=== PATIENT | female | born 1995 | race Caucasian/White ===

== ENCOUNTER 2023-11-23 13:26 | Emergency (ER) | payer OTHER, SELFPAY ==
[2023-11-23 13:32] VITALS: BP 115/76
[2023-11-23 14:01] LABS: % Basophils 0.5 % (0-2); % Eosinophils 2.3 % (0-6); % Immature Granulocytes 0.2 % (0-0.5); % Lymphocytes 39.8 % (20.5-51.1); % Neutrophils 45.2 % (42.2-75.2); Absolute Eosinophils 0.1 10^3/uL (0-0.7); Absolute Lymphocytes 1.8 10^3/uL (1.2-3.4); Absolute Monocytes 0.5 10^3/uL (0.1-0.6); Hematocrit 40.9 % (37.0-47.0); Mean Corp Hgb Conc. 34.2 g/dL (33.0-37.0); Mean Corpuscular Hgb 31.8 pg (27.0-31.0); Mean Platelet Volume 10.1 fL (7.4-10.4); Nucleated Red Blood Cells % 0 %; Platelet Count 223 10^3/uL (130-400); Red Cell Dist. Width 11.5 % (11.5-14.5); White Blood Cell Count 4.4 10^3/uL (4.8-10.8)
[2023-11-23 14:04] LABS: Urine Albumin Negative (Neg - Trace); Urine Bilirubin Negative (Negative); Urine Character Clear (Clear); Urine Color Yellow; Urine Glucose Negative (Negative); Urine Ketone Negative (Negative); Urine Leukocyte Negative (Negative); Urine Nitrite Negative (Negative); Urine Occult Blood Negative (Negative); Urine Urobilinogen Negative (Neg - 1+)
[2023-11-23 14:17] LABS: HCG, Serum Qualitative Screen Negative
[2023-11-23 14:21] LABS: ALT (SGPT) 15 U/L (0-35); AST (SGOT) 21 U/L (14-36); Albumin 4.5 g/dl (3.5-5.0); Alkaline Phosphatase 57 U/L (38-126); Blood Urea Nitrogen 13 mg/dl (7-17); Calcium 9.8 mg/dl (8.4-10.2); Carbon Dioxide 27 mmol/L (22-30); Chloride 105 mmol/L (98-107); Glucose 95 mg/dl (70-99); Potassium 4.3 mmol/L (3.5-5.1); Sodium 140 mmol/L (135-145); eGFR > 60.00
--- NOTE | 2023-11-23 15:55 | ED.GENMED ---
History of Present Illness
General
Chief Complaint: Abdominal Pain
Source: patient
Time Seen by Provider: 11/23/23 14:59
History of Present Illness
History of Present Illness:
28-year-old female presenting the emergency department for evaluation of right lower quadrant abdominal pain x 3 days, gradually worsening during this time and accompanied a migraine headache today and some loose stool during the 3 days. Patient
denies any fevers, chills, rigors, nausea or vomiting, urinary symptoms, back or flank pain or any other concerns. She did not take anything for symptoms prior to arrival. Last menstrual period finished 2 days ago. She does have a history of
ovarian cyst but states this feels very different. No other concerns at this time.
Past History
Past History
ED Past Medical History: Other (Migraine headache)
ED Past Surgical History: None
Social History
Tobacco: Non-smoker
Alcohol: None
Drug: None
Personal: Single
Living: with family
Review of Systems
Review of Systems
All Other Systems: ROS reviewed and negative except as documented in HPI and ROS
Phy Exam
Physical Exam
Physical Exam:
GENERAL: Alert , in no apparent distress
EYE: clear conjunctiva b/l
HEAD: NCAT
ENT: o/p clr, mmm.
CARDIAC: Regular rate and rhythm .
LUNGS: Clear breath sounds bilaterally, no acute respiratory distress, no wheezes/rales/rhonchi
ABDOMEN: Soft, mild right lower quadrant tenderness, no r/g, no cvat, negative Toure sign, mild tenderness at McBurney's point
NEUROLOGICAL: Alert and oriented
SKIN: Warm and dry, skin intact.
MUSCULOSKELETAL: well perfused.
PSYCH: Normal and appropriate interaction.
Scores
Heart Failure Risk
Heart Failure Risk Score: Not Applicable
Heart Score for Chest Pain Patients
STEMI patient?: Not applicable
Withdrawal Assessment of Alcohol
Withdrawal Assessment Completed?: Not applicable
Course
Orders/Labs/Results
Orders:
Orders
11/23/23 13:34
Test Result ONCE
11/23/23 13:42
Complete Blood Count/With Diff Urgent
Comprehensive Metabolic Panel Urgent
HCG, Serum Qualitative Screen Urgent
Lipase Urgent
Comment: ADD ON
Urinalysis Reflex To Culture Urgent
Date Specimen was Collected: 11/23/23
Time Specimen was Collected: 13:34
11/23/23 15:08
CT Abd/pel W Iv And Oral Contr Urgent
Comment:
Reason For Exam: RLQ pain
Iohexol [Omnipaque] See Protocol PO NOW STA
11/23/23 15:14
Ketorolac [Toradol] 30 mg IV NOW STA
11/23/23 15:57
Add On- LAB Urgent
Tests Added?: lipase
Abnormal Lab Results
11/23/23
13:42
WBC 4.4 L 10^3/uL
(4.8-10.8)
MCH 31.8 H pg
(27.0-31.0)
Monocytes % 12.0 H %
(1.7-9.3)
11/23/23 13:42
11/23/23 13:42
Vital Signs
Initial and Last Documented VS:
Initial Vital Signs
Temp Pulse Resp BP Pulse Ox
98.1 F 81 18 115/76 98
11/23/23 13:32 11/23/23 13:32 11/23/23 13:32 11/23/23 13:32 11/23/23 13:32
Last Documented Vital Signs
Temp Pulse Resp BP Pulse Ox
98.1 F 62 18 114/65 98
11/23/23 13:32 11/23/23 18:55 11/23/23 13:32 11/23/23 18:55 11/23/23 13:32
MDM/Problems Addressed
Differential Diagnosis Includes:
Appendicitis, ovarian cyst, colitis, pancreatitis
MDM/Problems Addressed:
28-year-old female presenting emergency department for evaluation of 3 days of right lower quadrant abdominal pain. Symptoms are not much different today however patient notes pain seems to be a little bit stronger. Did not take anything for the
pain or symptoms. Exam does reveal some right lower quadrant tenderness on palpation. Labs have been initiated in triage and shows a very slight leukopenia. Other labs and urine are unremarkable. Will obtain a CT of the abdomen and pelvis for
further evaluation. Toradol ordered for abdominal pain and patient's mild headache.
*Radiology
Radiology exam reviewed: radiology read reviewed
*Pulse Oximetry
Patient hypoxic: no
*Critical Care Note
Total Time (30-74mins, 75-104mins- exclusive of procedures): Not Applicable
Patient Management
Escalation/DeEscalation of care consider admission/obs:
Patient CT scan shows mild fecal material within the proximal colon as well as a 9.4 mm corpus luteal cyst in the left ovary. There is no evidence for appendicitis or other acute pathologies within the abdomen. Patient has no leukocytosis,
afebrile. She still does note some mild discomfort in the abdomen. Advised continued NSAIDs/Tylenol as needed for pain. Close follow-up with primary care provider. Aware of return cautions. Otherwise stable for discharge home.
ED Attending Note
-
Portions of this chart may have been created with voice recognition software.� Occasional wrong word or��sound alike� substitutions may have occurred due to the inherent limitations of voice recognition software.
Discharge Plan
Departure
Patient Disposition: Home (Routine Discharge)
Date of Disposition: 11/23/23
Time of Disposition: 19:07
Patient with high blood pressure during this ER visit?: No
Discharge Problem:
Abdominal pain
Instructions: Abdominal Pain
Referrals:
UNKNOWN - PT DOES,NOT KNOW [Family Provider] -
Interventions
Interventions:
*Risk Screen - Suicide Last Done: 11/23/23 13:32
*General Assessment Last Done: 11/23/23 13:32
*Neglect/Abuse Screening Last Done: 11/23/23 13:32
*Nursing Disposition Last Done: 11/23/23 19:27
RV-Gverwy-Lidpyhhpex Assessment Last Done: 11/23/23 16:10
Discharge Date and Time
Discharge Date/Time: 11/23/23 19:27
Print Language: TELUGU
[2023-11-23] MEDS: OMNIPAQUE 50 ML PO (15:56)
[2023-11-23] MEDS: TORADOL 30 MG IV (16:05)
[2023-11-23 16:28] LABS: Lipase 131 U/L (23-300)
[2023-11-23 18:55] VITALS: BP 114/65
== END 2023-11-23 19:27 | disposition home or self-care (01) ==
LOC: EMR 13:26
PROVIDERS: Emergency Medicine; EMERGENCY PHYSICIAN Emergency Medicine
DX: R10.31 Right lower quadrant pain (principal); R19.7 Diarrhea, unspecified; G43.909 Migraine, unspecified, not intractable, without status migrainosus; N83.12 Corpus luteum cyst of left ovary; Z91.018 Allergy to other foods; Z91.010 Allergy to peanuts
CPT/HCPCS: 99284; 96374; 74177; 80053; 81003; 83690; 84703; 85025; Q9967

== ENCOUNTER 2023-12-06 11:51 | Emergency (ER) | payer OTHER, SELFPAY ==
[2023-12-06 11:56] VITALS: BP 142/119; BMI 27.5
[2023-12-06 12:12] LABS: HCG, Urine Qualitative Screen Negative
[2023-12-06 13:05] LABS: Urine Albumin Negative (Neg - Trace); Urine Bilirubin Negative (Negative); Urine Character Clear (Clear); Urine Color Straw; Urine Glucose Negative (Negative); Urine Ketone Negative (Negative); Urine Leukocyte Negative (Negative); Urine Nitrite Negative (Negative); Urine Occult Blood Negative (Negative); Urine Specific Gravity 1.005 (<1.030); Urine Urobilinogen Negative (Neg - 1+)
[2023-12-06] MEDS: ZOFRAN 4 MG IV (13:27)
[2023-12-06] MEDS: DILAUDID 0.5 MG IV ×2 (13:27→15:06)
[2023-12-06 13:33] LABS: % Basophils 0.2 % (0-2); % Eosinophils 3.3 % (0-6); % Immature Granulocytes 0.2 % (0-0.5); % Lymphocytes 33.1 % (20.5-51.1); % Neutrophils 52.2 % (42.2-75.2); Absolute Eosinophils 0.1 10^3/uL (0-0.7); Absolute Lymphocytes 1.4 10^3/uL (1.2-3.4); Absolute Monocytes 0.5 10^3/uL (0.1-0.6); Absolute Neutrophils 2.2 10^3/uL (1.4-6.5); Hemoglobin 13.5 g/dL (12.0-16.0); Mean Corp Hgb Conc. 35.5 g/dL (33.0-37.0); Mean Corpuscular Hgb 31.8 pg (27.0-31.0); Mean Corpuscular Volume 89.4 fL (81.0-99.0); Mean Platelet Volume 9.9 fL (7.4-10.4); Nucleated Red Blood Cells % 0 %; Platelet Count 187 10^3/uL (130-400); Red Blood Cell Count 4.25 10^6/uL (4.20-5.40); Red Cell Dist. Width 11.4 % (11.5-14.5); White Blood Cell Count 4.3 10^3/uL (4.8-10.8)
[2023-12-06 13:54] LABS: Blood Urea Nitrogen 10 mg/dl (7-17); Calcium 9.9 mg/dl (8.4-10.2); Carbon Dioxide 26 mmol/L (22-30); Chloride 105 mmol/L (98-107); Estimated Creatinine Clearance > 125 ml/min; Glucose 90 mg/dl (70-99); Sodium 139 mmol/L (135-145); eGFR > 60.00
[2023-12-06 14:52] VITALS: BP 103/72
--- NOTE | 2023-12-06 17:49 | ED.GENMED ---
History of Present Illness
<Manny Shanks, DO - Last Filed: 12/06/23 18:17>
General
Chief Complaint: Abdominal Pain
Source: patient
Time Seen by Provider: 12/06/23 12:46
History of Present Illness
History of Present Illness:
Twice atrial female presents with right lower quadrant abdominal pain. The patient states that the symptoms have been ongoing for about 2 weeks but worse over the last 4 days. The pain intermittently now radiates toward the vagina. She states the
pain toward the vagina will be shooting in nature. She denies hematuria. No fevers. No vomiting. No motor weakness. No back pain. No flank pain. No rash. No injury. She has had no foreign bodies in the vagina but states she thought she felt
something abnormal when she was sitting on the toilet. She has been unable to follow-up with a splunk dashboard developer. The patient was seen recently in the emergency department had a negative CT.
Past History
<Manny Shanks, DO - Last Filed: 12/06/23 18:17>
Past History
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
<Abdulkadir Meza, DO - Last Filed: 12/06/23 19:56>
Past History
ED Past Medical History: Other (Migraine headache)
ED Past Surgical History: None
Social History
Tobacco: Non-smoker
Alcohol: None
Drug: None
Personal: Single
Living: with family
Phy Exam
<Manny Shanks, DO - Last Filed: 12/06/23 18:17>
Physical Exam
Physical Exam:
CONSTITUTIONAL Patient alert and oriented to person, place and time. Well-appearing. Vital signs reviewed.
HEAD atraumatic, normocephalic.
EYES eyelids normal to inspection, Pupils equally round and reactive to light, Extraocular muscles intact, Conjunctiva normal, Sclera normal.
NECK normal range of motion, Trachea midline, no jugular venous distention.
RESPIRATORY CHEST No respiratory distress noted, Chest expansion equal, Bilateral breath sounds clear.
CARDIOVASCULAR regular rate and rhythm, Heart sounds normal.
ABDOMEN mild right lower quadrant tenderness noted just medial to her ASIS. Mild right pelvic tenderness noted, Bowel sounds normal. No distention. Negative Rovsing
Gynecologic exam escorted by KULDEEP Hayden. No CMT, adnexa nontender bilaterally. Cervix normal in appearance. No abnormal lesions noted.
BACK normal inspection, no obvious deformities, no CVA tenderness
UPPER EXTREMITY range of motion normal, Motor strength normal, no cyanosis, no edema.
LOWER EXTREMITY range of motion normal, Motor strength normal, no cyanosis, no edema.
NEURO Speech normal, No focal motor deficits, Nolan coma scale 15, Memory normal, Cranial Nerves intact to screening exam.
SKIN skin warm, dry, and normal in color.
PSYCHIATRIC patient oriented to person place and time, Normal affect.
Course
<Manny Shanks DO - Last Filed: 12/06/23 18:17>
Orders/Labs/Results
Orders:
Orders
12/06/23 11:59
Test Result ONCE
12/06/23 12:04
, Urine Qualitative Screen [HCG, Urine Qualitative Screen] Urgent
Date Specimen was Collected: 12/06/23
Time Specimen was Collected: 11:59
Urinalysis Reflex To Culture Urgent
Date Specimen was Collected: 12/06/23
Time Specimen was Collected: 11:59
12/06/23 13:07
US Pelvis W Transvag Combined Urgent
Reason For Exam: R pelvic pain
12/06/23 13:19
HYDROmorphone [Dilaudid] 0.5 mg IV NOW STA
Ondansetron Injectable [Zofran] 4 mg IV NOW STA
12/06/23 13:20
Basic Metabolic Panel Urgent
Complete Blood Count/With Diff Urgent
12/06/23 15:03
HYDROmorphone [Dilaudid] 0.5 mg .ROUTE .STK-MED ONE
12/06/23 15:06
HYDROmorphone [Dilaudid] 0.5 mg IV NOW STA
12/06/23 15:42
Abdomen Xray - 1 View [CR Abdomen - 1 View] Urgent
Comment:
Reason For Exam: R abd pain
12/06/23 17:45
CT Abd/pelvis W Iv Cont Urgent
Comment:
Reason For Exam: RLQ pain
12/06/23 17:55
Magnesium Citrate [Citroma] 300 ml PO ONCE ONE
12/06/23 19:34
Acetaminophen [Tylenol] 1,000 mg .ROUTE .STK-MED ONE
12/06/23 19:43
Acetaminophen [Tylenol] 1,000 mg PO NOW STA
Abnormal Lab Results
12/06/23
13:20
WBC 4.3 L 10^3/uL
(4.8-10.8)
MCH 31.8 H pg
(27.0-31.0)
RDW 11.4 L %
(11.5-14.5)
Monocytes % 11.0 H %
(1.7-9.3)
12/06/23 13:20
12/06/23 13:20
Vital Signs
Initial and Last Documented VS:
Initial Vital Signs
Temp Pulse Resp BP Pulse Ox
97.7 F 88 16 142/119 99
12/06/23 11:56 12/06/23 11:56 12/06/23 11:56 12/06/23 11:56 12/06/23 11:56
Last Documented Vital Signs
Temp Pulse Resp BP Pulse Ox
98.7 F 68 17 109/60 98
12/06/23 18:39 12/06/23 18:39 12/06/23 18:39 12/06/23 18:39 12/06/23 18:39
<Abdulkadir Meza, DO - Last Filed: 12/06/23 19:56>
Orders/Labs/Results
Orders:
Orders
12/06/23 11:59
Test Result ONCE
12/06/23 12:04
, Urine Qualitative Screen [HCG, Urine Qualitative Screen] Urgent
Date Specimen was Collected: 12/06/23
Time Specimen was Collected: 11:59
Urinalysis Reflex To Culture Urgent
Date Specimen was Collected: 12/06/23
Time Specimen was Collected: 11:59
12/06/23 13:07
US Pelvis W Transvag Combined Urgent
Reason For Exam: R pelvic pain
12/06/23 13:19
HYDROmorphone [Dilaudid] 0.5 mg IV NOW STA
Ondansetron Injectable [Zofran] 4 mg IV NOW STA
12/06/23 13:20
Basic Metabolic Panel Urgent
Complete Blood Count/With Diff Urgent
12/06/23 15:03
HYDROmorphone [Dilaudid] 0.5 mg .ROUTE .STK-MED ONE
12/06/23 15:06
HYDROmorphone [Dilaudid] 0.5 mg IV NOW STA
12/06/23 15:42
Abdomen Xray - 1 View [CR Abdomen - 1 View] Urgent
Comment:
Reason For Exam: R abd pain
12/06/23 17:45
CT Abd/pelvis W Iv Cont Urgent
Comment:
Reason For Exam: RLQ pain
12/06/23 17:55
Magnesium Citrate [Citroma] 300 ml PO ONCE ONE
12/06/23 19:34
Acetaminophen [Tylenol] 1,000 mg .ROUTE .STK-MED ONE
12/06/23 19:43
Acetaminophen [Tylenol] 1,000 mg PO NOW STA
Abnormal Lab Results
12/06/23
13:20
WBC 4.3 L 10^3/uL
(4.8-10.8)
MCH 31.8 H pg
(27.0-31.0)
RDW 11.4 L %
(11.5-14.5)
Monocytes % 11.0 H %
(1.7-9.3)
12/06/23 13:20
12/06/23 13:20
Vital Signs
Initial and Last Documented VS:
Initial Vital Signs
Temp Pulse Resp BP Pulse Ox
97.7 F 88 16 142/119 99
12/06/23 11:56 12/06/23 11:56 12/06/23 11:56 12/06/23 11:56 12/06/23 11:56
Last Documented Vital Signs
Temp Pulse Resp BP Pulse Ox
98.7 F 68 17 109/60 98
12/06/23 18:39 12/06/23 18:39 12/06/23 18:39 12/06/23 18:39 12/06/23 18:39
<Manny Shanks DO - Last Filed: 12/06/23 18:17>
MDM/Problems Addressed
MDM/Problems Addressed:
Abdominal pain
<Manny Shanks DO - Last Filed: 12/06/23 18:17>
*Radiology
Radiology exam reviewed: radiology read reviewed
*Pulse Oximetry
Patient hypoxic: no
*Critical Care Note
Total Time (30-74mins, 75-104mins- exclusive of procedures): Not Applicable
Data Reviewed
Review of Other/Old Records Reveals: Radiology Studies (Recent CT reviewed)
Source: patient
Prescriptions/Medications Considered But Not Given:
Considered antibiotics but white count normal, no signs of infection
<Manny Shanks DO - Last Filed: 12/06/23 18:17>
Patient Management
Escalation/DeEscalation of care consider admission/obs:
Lengthy discussion with the patient. Patient continues to have pain has persisted for about 2 weeks. Unlikely to be appendicitis due to the fact that her white count remains normal she is afebrile abdomen exam is relatively benign. She has pain
with some deep palpation. Initially did not recommend repeat CT but the patient is concerned and would like to proceed with repeat CT. No evidence of torsion by ultrasound. No evidence of infection. Urinalysis negative. On patient's request we
will proceed with CT. Question whether the symptoms could be related to constipation as she did have a fair amount of stool noted in the right colon and cecum on the last CT and again on x-ray
<Abdulkadir Meza DO - Last Filed: 12/06/23 19:56>
Update Note
Update Note:
12/06/2023 1826 PM: In to see the patient. I reviewed the history and physical performed by Dr. Shanks. Patient had nothing new to add. Awaiting CT scan. Patient resting comfortably texting at time of discussion.
12/06/2023 1955 PM: CT: No significant acute abnormality identified in the abdomen or pelvis, as described above. Normal appendix. Discussed this with patient.
ED Attending Note
<Abdulkadir eMza DO - Last Filed: 12/06/23 19:56>
-
Portions of this chart may have been created with voice recognition software.� Occasional wrong word or��sound alike� substitutions may have occurred due to the inherent limitations of voice recognition software.
Discharge Plan
Departure
Patient Disposition: Home (Routine Discharge)
Date of Disposition: 12/06/23
Time of Disposition: 19:54
Patient with high blood pressure during this ER visit?: No
Discharge Problem:
Abdominal pain
Instructions: Abdominal Pain
Referrals:
Tavo,Nicki M., DO [Active] -
UNKNOWN - PT DOES,NOT KNOW [Family Provider] -
Activity Restrictions/Additional Instructions:
Return immediately for worsening pain, fevers, vomiting or any other concerns. Consider MiraLAX twice a day for 4 days. Please see your doctor or gynecology in follow-up in the next 3 to 5 days.
Interventions
Interventions:
*Risk Screen - Suicide Last Done: 12/06/23 11:56
*General Assessment Last Done: 12/06/23 12:29
*Neglect/Abuse Screening Last Done: 12/06/23 11:56
ED- Fall Risk Assessment Last Done: 12/06/23 12:29
*ED COVID-19 Vaccine History Last Done: 12/06/23 12:29
DV-Igpdrt-Kablbjnrtm Assessment Last Done: 12/06/23 12:29
Discharge Date and Time
Print Language: SENEGALESE
[2023-12-06 18:39] VITALS: BP 109/60
[2023-12-06] MEDS: TYLENOL 1000 MG PO (19:43)
[2023-12-06] MEDS: CITROMA 300 ML PO (19:46)
== END 2023-12-06 20:14 | disposition home or self-care (01) ==
LOC: EMR 11:51
PROVIDERS: Emergency Medicine; EMERGENCY PHYSICIAN Emergency Medicine
DX: R10.31 Right lower quadrant pain (principal); R10.2 Pelvic and perineal pain; G43.909 Migraine, unspecified, not intractable, without status migrainosus; Z91.018 Allergy to other foods; Z91.010 Allergy to peanuts
CPT/HCPCS: 99285; 96375; 96374; 96376; 74018; 74177; 76830; 76856; 80048; 81003; 81025; 85025; Q9967

== ENCOUNTER 2023-12-16 16:26 | Emergency (ER) | payer OTHER, SELFPAY ==
[2023-12-16 16:31] VITALS: BP 125/83
[2023-12-16 17:04] LABS: % Basophils 0.4 % (0-2); % Eosinophils 4.2 % (0-6); % Immature Granulocytes 0.4 % (0-0.5); % Lymphocytes 30.8 % (20.5-51.1); % Neutrophils 54.2 % (42.2-75.2); Absolute Eosinophils 0.2 10^3/uL (0-0.7); Absolute Lymphocytes 1.7 10^3/uL (1.2-3.4); Absolute Monocytes 0.6 10^3/uL (0.1-0.6); Hematocrit 36.8 % (37.0-47.0); Hemoglobin 13.2 g/dL (12.0-16.0); Mean Corp Hgb Conc. 35.9 g/dL (33.0-37.0); Mean Corpuscular Hgb 33.1 pg (27.0-31.0); Mean Corpuscular Volume 92.2 fL (81.0-99.0); Nucleated Red Blood Cells % 0 %; Platelet Count 185 10^3/uL (130-400); Red Blood Cell Count 3.99 10^6/uL (4.20-5.40); Red Cell Dist. Width 11.4 % (11.5-14.5); White Blood Cell Count 5.5 10^3/uL (4.8-10.8)
[2023-12-16 17:14] LABS: HCG, Serum Qualitative Screen Negative
[2023-12-16 17:25] LABS: ALT (SGPT) 16 U/L (0-35); AST (SGOT) 21 U/L (14-36); Albumin 4.1 g/dl (3.5-5.0); Alkaline Phosphatase 54 U/L (38-126); Blood Urea Nitrogen 14 mg/dl (7-17); Calcium 9.2 mg/dl (8.4-10.2); Carbon Dioxide 23 mmol/L (22-30); Chloride 107 mmol/L (98-107); Glucose 100 mg/dl (70-99); Potassium 4.4 mmol/L (3.5-5.1); Sodium 138 mmol/L (135-145); Total Bilirubin 0.4 mg/dl (0.2-1.3); Total Protein 6.3 g/dl (6.3-8.2); eGFR > 60.00
[2023-12-16 17:40] LABS: Lipase 134 U/L (23-300)
--- NOTE | 2023-12-16 18:26 | ED.GENMED ---
History of Present Illness
General
Chief Complaint: Abdominal Pain
Source: patient
Time Seen by Provider: 12/16/23 18:16
History of Present Illness
History of Present Illness:
Patient is a 28-year-old female presenting to the ED with 4 days of diarrhea and severe nausea. She states that she is on Flagyl and doxycycline currently for pelvic disease. She states that she has been having fevers, no appetite, abdominal pain
both cramping and sharp in bilateral lower quadrants. She states that the stool has an odd smell to her. No reported headaches, chest pain, shortness of breath, vomiting. Patient has not taken anything for the nausea, diarrhea or discomfort. She
currently lives with some of her nieces and and states that her nephew was diagnosed with bronchitis.
Past History
Past History
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
ED Past Surgical History: None
Social History
Tobacco: Non-smoker
Alcohol: None
Drug: None
Personal: Single
Living: with family
Review of Systems
Review of Systems
Constitutional: Reports fever and chills
EENT: Reports no symptoms
Respiratory: Reports no symptoms
Cardiac: Reports no symptoms
ABD/GI: Reports abdominal pain, nausea, diarrhea and anorexia
: Reports no symptoms
Musculoskeletal: Reports no symptoms
Skin: Reports no symptoms
Psychiatric: Reports no symptoms
Phy Exam
General Physical Exam
General Presentation: well appearing and no apparent distress
General age: appears stated age
General Skin: warm and dry
General Habitus: normal
General Mental: alert
Cardiovascular Exam
Cardiovascular Exam: regular rate/rhythm, no edema, no gallop, no JVD, no murmur and normal peripheral pulses
Pulmonary Exam
Pulmonary Exam: lungs clear, no respiratory distress, no rales, chest non tender, no crackles, no rhonchi, no stridor, no wheezing and no cough
Gastrointestinal Exam
Gastrointestinal Exam: soft, non distended and tender
Musculoskeletal Exam
Musculoskeletal Exam: full ROM and no edema
Psychiatric Exam
Psychiatric Exam: normal mood/affect
Course
Orders/Labs/Results
Orders:
Orders
12/16/23 16:37
Test Result ONCE
12/16/23 16:53
CBC/With Diff [Complete Blood Count/With Diff] Urgent
CMP [Comprehensive Metabolic Panel] Urgent
HCG, Serum Qualitative Screen Urgent
Lipase Urgent
12/16/23 18:32
0.9% Sodium Chloride 1000 ml [Nss] 1,000 ml IV BOLUS
Ondansetron Injectable [Zofran] 4 mg IV NOW STA
12/16/23 19:34
Urinalysis Urgent
Date Specimen was Collected: 12/16/23
Time Specimen was Collected: 19:26
Abnormal Lab Results
12/16/23
16:53
RBC 3.99 L 10^6/uL
(4.20-5.40)
Hct 36.8 L %
(37.0-47.0)
MCH 33.1 H pg
(27.0-31.0)
RDW 11.4 L %
(11.5-14.5)
Monocytes % 10.0 H %
(1.7-9.3)
Glucose 100 H mg/dl
(70-99)
12/16/23 16:53
12/16/23 16:53
Vital Signs
Initial and Last Documented VS:
Initial Vital Signs
Temp Pulse Resp BP Pulse Ox
99.2 F 90 18 125/83 98
12/16/23 16:31 12/16/23 16:31 12/16/23 16:31 12/16/23 16:31 12/16/23 16:31
Last Documented Vital Signs
Temp Pulse Resp BP Pulse Ox
99.4 F 69 13 114/72 100
12/16/23 20:00 12/16/23 20:00 12/16/23 20:00 12/16/23 20:00 12/16/23 20:00
MDM/Problems Addressed
Differential Diagnosis Includes:
Enterocolitis, gastritis
MDM/Problems Addressed:
Patient is a 28-year-old female presenting to the ED with 4 days of nausea and diarrhea. She is stable. Labs are normal. Stool sample attempted to be taken however stool was too formed for C. difficile analysis. Patient was given IV fluids and
Zofran in the ED for symptoms. Patient was counseled that antibiotics could be causing the symptoms she is experiencing.
Chronic conditions affecting care:
NA
Acute Exacerbation and/or Progression of Chronic Illness:
NA
*Pulse Oximetry
Patient hypoxic: no
*EKG
Interpreted by ED Provider?: NA
*Fuel Testing Technician Interpretation
Rate: Fuel Testing Technician- N/A
*Critical Care Note
Total Time (30-74mins, 75-104mins- exclusive of procedures): Not Applicable
ED Attending Note
-
Portions of this chart may have been created with voice recognition software.� Occasional wrong word or��sound alike� substitutions may have occurred due to the inherent limitations of voice recognition software.
Discharge Plan
Departure
Patient Disposition: Home (Routine Discharge)
Date of Disposition: 12/16/23
Time of Disposition: 20:28
Patient with high blood pressure during this ER visit?: No
Condition: Good
Discharge Problem:
Diarrhea
Instructions: Diarrhea in teens and adults
Interventions
Interventions:
*Risk Screen - Suicide Last Done: 12/16/23 16:31
*General Assessment Last Done: 12/16/23 16:31
*Neglect/Abuse Screening Last Done: 12/16/23 16:31
ED- Fall Risk Assessment Last Done: 12/16/23 18:42
*ED COVID-19 Vaccine History Last Done: 12/16/23 18:42
GG-Pcwcof-Exfraohoct Assessment Last Done: 12/16/23 18:42
Discharge Date and Time
Print Language: INDONESIAN
[2023-12-16 18:42] VITALS: BP 130/61; BMI 31.7
[2023-12-16] MEDS: ZOFRAN 4 MG IV (18:59)
[2023-12-16] MEDS: NSS 1000 IV (19:00)
[2023-12-16 19:41] LABS: Urine Albumin Negative (Neg - Trace); Urine Bilirubin Negative (Negative); Urine Character Clear (Clear); Urine Color Yellow; Urine Glucose Negative (Negative); Urine Ketone Negative (Negative); Urine Leukocyte Negative (Negative); Urine Nitrite Negative (Negative); Urine Occult Blood Negative (Negative); Urine Urobilinogen Negative (Neg - 1+)
[2023-12-16 20:00] VITALS: BP 114/72
== END 2023-12-16 20:44 | disposition home or self-care (01) ==
LOC: EMR 16:26
PROVIDERS: Student in an Organized Health Care Education/Training Program; EMERGENCY PHYSICIAN Emergency Medicine
DX: R19.7 Diarrhea, unspecified (principal)
CPT/HCPCS: 99284; 96374; 96361; 80053; 81003; 83690; 84703; 85025

== ENCOUNTER 2024-12-23 11:46 | Emergency (ER) | payer OTHER, SELFPAY ==
[2024-12-23 11:50] VITALS: BP 113/78
[2024-12-23 12:10] LABS: Urine Character Clear (Clear)
[2024-12-23 12:12] LABS: Hematocrit 41.1 % (37.0-47.0); Hemoglobin 14.4 g/dL (12.0-16.0); Mean Corp Hgb Conc. 35.0 g/dL (33.0-37.0); Mean Corpuscular Volume 91.7 fL (81.0-99.0); Nucleated Red Blood Cells % 0 %; Platelet Count 206 10^3/uL (130-400); Red Cell Dist. Width 11.3 % (11.5-14.5)
[2024-12-23 12:30] LABS: ALT (SGPT) 21 U/L (0-35); AST (SGOT) 21 U/L (14-36); Albumin 4.6 g/dl (3.5-5.0); Alkaline Phosphatase 52 U/L (38-126); Blood Urea Nitrogen 15 mg/dl (7-17); Calcium 9.7 mg/dl (8.4-10.2); Carbon Dioxide 28 mmol/L (22-30); Chloride 105 mmol/L (98-107); Glucose 104 mg/dl (70-99); Lipase 112 U/L (23-300); Potassium 4.3 mmol/L (3.5-5.1); Sodium 138 mmol/L (135-145); Total Protein 7.3 g/dl (6.3-8.2); eGFR > 60.00
[2024-12-23 12:43] LABS: HCG, Serum Qualitative Screen Negative
--- NOTE | 2024-12-23 13:41 | ED.GENMED ---
History of Present Illness
General
Chief Complaint: Flank Pain
Source: patient
Exam Limitations: none
Time Seen by Provider: 12/23/24 13:02
Nursing documentation reviewed up to this point in time: agreed with
History of Present Illness
History of Present Illness:
Patient is a 29-year-old female who presents to the ER for evaluation. Initially patient started with chills and fevers about a month ago and has 3 UTI symptoms. 2 weeks ago she took doxycycline for 1 week however symptoms never really resolved.
She continues to complain of urinary urgency and notes that she is urinating about every 45 minutes. She does not feel she is completely emptying her bladder.
She is sexually active with her only denies any vaginal discharge. She was recently evaluated by her petroleum engineering teacher for this who did a full exam including STD testing all of which was negative. She was given prescriptions for ultrasound of
her pelvis and renal bladder but did not get that done yet.
She does complain of some low back pain on the left and lower abdominal pain.
She does not take anything for pain.
She denies any fever chills nausea vomiting.
Past History
Past History
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
ED Past Surgical History: None
Social History
Tobacco: Non-smoker
Alcohol: None
Drug: None
Personal: Single
Living: with family
Phy Exam
General Physical Exam
General Presentation: no apparent distress
General age: appears stated age
General Skin: warm and dry
General Habitus: normal
General Mental: alert
General Hydration: appears well hydrated
Gastrointestinal Exam
Gastrointestinal Exam: soft and other (Suprapubic tenderness)
Neurological Exam
Neurological Exam: alert and oriented x3
Musculoskeletal Exam
Musculoskeletal Exam: full ROM
Skin Exam
Skin Exam: normal color and warm/dry
Psychiatric Exam
Psychiatric Exam: normal mood/affect
Course
Orders/Labs/Results
Orders:
Orders
12/23/24 11:54
Test Result ONCE
12/23/24 12:02
Complete Blood Count/With Diff Urgent
Comprehensive Metabolic Panel Urgent
HCG, Serum Qualitative Screen Urgent
Lipase Urgent
Urinalysis Reflex To Culture Urgent
Date Specimen was Collected: 12/23/24
Time Specimen was Collected: 11:54
12/23/24 14:00
US Pelvis Only (non-obstetric) Urgent
Comment:
Reason For Exam: lower abd pain
12/23/24 14:01
CT Abd/pel Without Iv Or Oral Urgent
Comment:
Reason For Exam: left flank pain
12/23/24 17:06
Phenazopyridine HCl [Pyridium] 200 mg PO NOW STA
Abnormal Lab Results
12/23/24
12:02
MCH 32.1 H pg
(27.0-31.0)
RDW 11.3 L %
(11.5-14.5)
Monocytes % 11.4 H %
(1.7-9.3)
Glucose 104 H mg/dl
(70-99)
12/23/24 12:02
12/23/24 12:02
Vital Signs
Initial and Last Documented VS:
Initial Vital Signs
Temp Pulse Resp BP Pulse Ox
98.1 F 88 18 113/78 99
12/23/24 11:50 12/23/24 11:50 12/23/24 11:50 12/23/24 11:50 12/23/24 11:50
Last Documented Vital Signs
Temp Pulse Resp BP Pulse Ox
98.1 F 68 18 102/59 100
12/23/24 11:50 12/23/24 16:37 12/23/24 16:37 12/23/24 16:37 12/23/24 16:37
Bar Pointer consulted with Physician
Bar Pointer consulted with physician?: Yes (pam )
MDM/Problems Addressed
Differential Diagnosis Includes:
Not limited to renal stone pyelonephritis UTI, urinary retention
MDM/Problems Addressed:
No acute findings or cause for patient's symptoms here in the ER workup.
Her CAT scan and ultrasound are negative ;urinalysis negative . 2 bladder scans were done and patient is not retaining urine. Her electrolytes are normal. will Try dose of Pyridium here in the ER and DC with Pyridium with close outpatient
follow-up urology. Patient is in no acute distress afebrile stable vital signs
*Radiology
Radiology exam reviewed: radiology read reviewed
*Pulse Oximetry
SaO2: 99
Oxygen Mode of Delivery: Room air
Patient hypoxic: no
*Critical Care Note
Total Time (30-74mins, 75-104mins- exclusive of procedures): Not Applicable
ED Attending Note
-
Portions of this chart may have been created with voice recognition software.� Occasional wrong word or��sound alike� substitutions may have occurred due to the inherent limitations of voice recognition software.
Discharge Plan
Departure
Patient Disposition: Home (Routine Discharge)
Date of Disposition: 12/23/24
Time of Disposition: 17:10
Patient with high blood pressure during this ER visit?: No
Condition: Fair
Covid-19: Not Applicable
Discharge Problem:
Dysuria, Abdominal pain
Prescriptions:
New
phenazopyridine [Pyridium] 200 mg tablet
200 mg PO TID PRN (Reason: Pain) Qty: 6 0RF
Referrals:
Marie Li MD [Family Provider, Internal Medicine]
Sudarshan Reza MD [Active, Urology]
Activity Restrictions/Additional Instructions:
You were seen here today for urinary frequency, the sensation of not emptying your bladder completely and abdominal back pain. Your CAT scan and ultrasound were negative and your urinalysis is negative for infection. You are not retaining urine.
Your other labs are normal. Please follow-up with urology for further evaluation. You may take Pyridium as needed every 8 hours for urinary symptoms. As discussed this will change her secretions to an orange color. Return if any worsening of
symptoms
Interventions
Interventions:
*Risk Screen - Suicide Last Done: 12/23/24 11:50
*General Assessment Last Done: 12/23/24 11:50
*Neglect/Abuse Screening Last Done: 12/23/24 11:50
*ED COVID-19 Vaccine History Last Done: 12/23/24 11:50
KI-Vlqnua-Cyjkkepvuz Assessment Last Done: 12/23/24 12:14
ED-Female Genitourinary Assessment Last Done: 12/23/24 12:14
Discharge Date and Time
Print Language: MACEDONIAN
[2024-12-23 14:19] VITALS: BP 94/78
[2024-12-23 16:37] VITALS: BP 102/59
== END 2024-12-23 17:30 | disposition home or self-care (01) ==
LOC: EMR 11:46
PROVIDERS: Emergency Medicine; EMERGENCY PHYSICIAN Emergency Medicine; FAMILY PHYSICIAN Internal Medicine
DX: R10.32 Left lower quadrant pain (principal); M54.50 Low back pain, unspecified; R30.0 Dysuria; R39.15 Urgency of urination; R35.0 Frequency of micturition; G43.809 Other migraine, not intractable, without status migrainosus; Z91.018 Allergy to other foods
CPT/HCPCS: 99285; 51798 ×2; 74176; 76856; 80053; 81003; 83690; 84703; 85025

== ENCOUNTER → 2025-01-18 16:09 | Outpatient (REF) | payer OTHER, SELFPAY | LOC: RAD 16:09 | PROVIDERS: ATTENDING PHYSICIAN Obstetrics & Gynecology; FAMILY PHYSICIAN Internal Medicine | DX: O36.80X0 Pregnancy with inconclusive fetal viability, not applicable or unspecified (principal) | CPT/HCPCS: 76801; 76817 ==